=== PATIENT | male | born 1985 ===

== ENCOUNTER 2018-03-10 11:48 | Emergency (ER) | payer SELFPAY ==
[2018-03-10 11:48] VITALS: BMI 28.3
[2018-03-10 11:55] VITALS: RESP 16; TEMP 98
--- NOTE | 2018-03-10 12:06 | C.PDOC ---
History Of Present Illness 32 year old male presents to the emergency department for evaluation of an itchy rash which developed over his face, scalp, and anterior chest over the past three days. Patient states that he is also experiencing a subjective fever , and body aches. He reports that he was exposed to chicken pox in his household. Otherwise, pt denies high fever, sore throat, throat swelling or tightness, neck pain, cough, CP, SOB, wheezing, abdominal pain, nausea, vomiting , UTI sx. Denies previous hx of allergy. Ambulate to ED for evaluation, not in nay apparent distress. Time Seen by Provider: 03/10/18 11:49 Chief Complaint (Nursing): Abnormal Skin Integrity History Per: Patient History/Exam Limitations: language barrier (translated from Yi by ayaan Alfaro) Onset/Duration Of Symptoms: Days (3) Current Symptoms Are (Timing): Still Present Location Of Injury: Anterior: Chest, Face, Head (scalp) Quality Of Symptoms: Itching Past Medical History Reviewed: Historical Data, Nursing Documentation, Vital Signs Vital Signs: Last Vital Signs Temp 98 F 03/10/18 11:53 Pulse 75 03/10/18 12:30 Resp 16 03/10/18 12:30 BP 119/69 03/10/18 12:30 Pulse Ox 98 03/10/18 12:30 - Medical History PMH: No Chronic Diseases Surgical History: No Surg Hx Family History: States: No Known Family Hx - Social History Hx Alcohol Use: No Hx Substance Use: No Review Of Systems Except As Marked, All Systems Reviewed And Found Negative. Constitutional: Positive for: Fever, Malaise ENT: Negative for: Throat Pain Respiratory: Negative for: Cough Gastrointestinal: Negative for: Nausea, Vomiting, Abdominal Pain Skin: Positive for: Rash Physical Exam - Physical Exam Appears: Well, Non-toxic, No Acute Distress Skin: Warm, Dry, Rash (scattered macular, papular and vasicular rash in different stages present over face, scalp, and anterior chest wall. NO flactualnce, no clelulitis.) Head: Normacephalic Eye(s): bilateral: PERRL Ear(s): Bilateral: Normal Nose: No Flaring, No Discharge Oral Mucosa: Moist, No Drooling Tongue: No Swelling Lips: No Swelling Throat: No Erythema, No Drooling, Other (uvula midline, no edema.) Neck: Trachea Midline, No Midline Cervical Tenderness, No Paracervical Tenderness, Supple, Other ((-) meningeal sign) Chest: Symmetrical, No Tenderness Cardiovascular: Rhythm Regular, No Murmur, No JVD Respiratory: No Decreased Breath Sounds, No Accessory Muscle Use, No Rales, No Rhonchi, No Stridor, No Wheezing Gastrointestinal/Abdominal: Soft, No Tenderness, No Distention, No Guarding, No Rebound Back: No CVA Tenderness Extremity: Normal ROM, No Deformity, No Swelling Neurological/Psych: Oriented x3, Normal Speech, Normal Cognition, Normal Motor, Normal Sensation, Normal Reflexes ED Course And Treatment O2 Sat by Pulse Oximetry: 99 (RA) Pulse Ox Interpretation: Normal Progress Note: On re-eval, pt is afebrile, hemodynamically stable. Non-toxic. Ambulatory in ED with stable gait. PulseOx 98% on RA. ENT: no acute findings. Uvula midline, no edema. Neck: Supple, (-) JVD, (-) meningeal sign. Lungs: CTA B/L, BS equal B/L. Abd: benign, (-) guarding, (-) rebound. Skin: macular/ papular/vesicular rash in different stages over face, scalp, anterior trunk. No evidence of cellulitis, or flactulance. Neurologically intact. Patient has clinical findings c/w rash, malaise r/o chicken pox.Sick contact by history. Pt advised on course of ds, and ref. to F/U with PMD In 2-3 days for re-eval. return to ED if any worsening or new changes. Disposition Counseled Patient/Family Regarding: Diagnosis, Need For Followup, Rx Given - Disposition Referrals: [facility] [Outside] Disposition: HOME/ ROUTINE Disposition Time: 12:15 Condition: STABLE Additional Instructions: Encourage fluids bed rest for 3-4 days Take medication as need for pain and itchiness follow up with PMD in 2-3 days for re-evaluation. return to ED if any worsening or new changes. Prescriptions: Acetaminophen [Tylenol] 325 mg PO Q6 #30 capsule DiphenhydrAMINE [Benadryl] 25 mg PO BID #20 cap Instructions: Chickenpox Forms: [employer] (Kiswahili), Work Excuse Print Language: [id number] - Clinical Impression Clinical Impression: Chicken pox - PA / [employer] / Resident Statement MD/DO has reviewed & agrees with the documentation as recorded. - Scribe Statement The provider has reviewed the documentation as recorded by the Scribe (Pito Brown) All medical record entries made by the Scribe were at my direction and personally dictated by me. I have reviewed the chart and agree that the record accurately reflects my personal performance of the history, physical exam, medical decision making, and the department course for this patient. I have also personally directed, reviewed, and agree with the discharge instructions and disposition.
[2018-03-10 12:31] VITALS: BP 119/69; PULSE 75
[2018-03-10 15:11] VITALS: O2SAT 99
== END 2018-03-10 12:30 | disposition home or self-care (01) ==
LOC: C.ER 11:48
DX: B01.9 Varicella without complication (principal)